=== PATIENT | female | born 1955 | race Caucasian/White ===

== ENCOUNTER 2019-04-07 06:56 | Observation (INO) ==
[2019-04-07] MEDS ORDERED: *HR* FentaNYL (PF) 100 MCG/2 ML VIAL IVP ONE (07:14)
[2019-04-07 07:39] LABS: INR 0.9; Prothrombin Time 10.3 Seconds (9.4-12.1)
[2019-04-07 07:41] LABS: Activated Partial Thrombo Time 31.4 Seconds (26.0-36.0); Basophils % 0.7 %; Eosinophils # 0.1 K/mcL (0.0-0.6); Hematocrit 40.4 % (35.3-44.9); Hemoglobin 12.9 g/dL (11.5-15.4); Immature Granulocytes % 0.2 % (0-4); Lymphocytes # 1.6 K/mcL (0.6-4.6); Lymphocytes % 34.4 %; Mean Corpuscular HGB Conc 31.9 g/dL (31.6-35.5); Mean Corpuscular Hemoglobin 29.5 pg (28.0-33.3); Mean Corpuscular Volume 92.2 fL (83.0-100.0); Mean Platelet Volume 9.2 fL (9.4-12.4); Monocytes # 0.5 K/mcL (0.0-1.3); Monocytes % 10.7 %; Neutrophils # 2.4 K/mcL (1.6-8.9); Platelet Count 197 K/mcL (140-400); Red Blood Count 4.38 M/mcL (3.82-4.97); Red Cell Distribution Width 12.9 % (11.5-14.5); White Blood Count 4.6 K/mcL (4.3-11.1)
[2019-04-07] MEDS ORDERED: Aspirin 81 MG TAB.CHEW PO STA (08:12)
[2019-04-07 08:41] LABS: BUN/Creatinine Ratio 14 (6-26); Blood Urea Nitrogen 11 mg/dL (8-23); Calcium 9.6 mg/dL (8.6-10.3); Carbon Dioxide 32 mEq/L (23-29); Chloride 101 mEq/L (98-107); Glucose 115 mg/dL (70-105); Osmolality,Calculated 292 (280-300); Potassium 2.9 mEq/L (3.5-5.1); Sodium 141 mEq/L (136-145); Troponin I < 0.03 ng/mL (< 0.04); eGFR For African Americans > 60 (> 60); eGFR For Non-African Americans > 60 (> 60)
[2019-04-07] MEDS ORDERED: Potassium Chloride Elixir 20 MEQ/15 ML UDC PO ONE (08:47)
[2019-04-07] MEDS ORDERED: Acetaminophen 325 MG TABLET PO PRN (10:00)
[2019-04-07] MEDS ORDERED: *HR* HYDROcodone/Acet 5/325 mg TABLET PO PRN (10:00)
[2019-04-07] MEDS ORDERED: Naloxone 0.4 MG/ML INJ IVP PRN (10:00)
[2019-04-07] MEDS ORDERED: Ondansetron 4 MG/2 ML VIAL IVP PRN (10:00)
[2019-04-07] MEDS ORDERED: Nitroglycerin 0.4 MG TAB.SUBL SL PRN (10:02)
[2019-04-07] MEDS ORDERED: SUMAtriptan succinate 25 MG TABLET PO PRN (10:02)
[2019-04-07 10:33] LABS: Magnesium 1.7 mg/dL (1.6-2.6)
[2019-04-07] MEDS: *HR* Heparin 5,000 UNIT/ML VIAL SQ SCH (18:05)
[2019-04-07] MEDS: Gabapentin 300 MG CAPSULE PO SCH (20:20)
[2019-04-08 05:48] LABS: Basophils % 0.7 %; Eosinophils # 0.1 K/mcL (0.0-0.6); Eosinophils % 2.2 %; Hematocrit 37.1 % (35.3-44.9); Hemoglobin 12.6 g/dL (11.5-15.4); Immature Granulocytes % 0.2 % (0-4); Lymphocytes # 1.9 K/mcL (0.6-4.6); Lymphocytes % 47.5 %; Mean Corpuscular Hemoglobin 30.4 pg (28.0-33.3); Mean Corpuscular Volume 89.6 fL (83.0-100.0); Mean Platelet Volume 9.5 fL (9.4-12.4); Monocytes # 0.4 K/mcL (0.0-1.3); Monocytes % 8.7 %; Neutrophils # 1.6 K/mcL (1.6-8.9); Platelet Count 175 K/mcL (140-400); Red Blood Count 4.14 M/mcL (3.82-4.97); Red Cell Distribution Width 13.1 % (11.5-14.5); Segmented Neutrophils % 40.7 %
[2019-04-08] MEDS: *HR* Heparin 5,000 UNIT/ML VIAL SQ SCH ×2 (05:50→17:49)
[2019-04-08 06:09] LABS: BUN/Creatinine Ratio 15 (6-26); Blood Urea Nitrogen 12 mg/dL (8-23); Calcium 9.1 mg/dL (8.6-10.3); Carbon Dioxide 28 mEq/L (23-29); Chloride 106 mEq/L (98-107); Glucose 108 mg/dL (70-105); Magnesium 1.9 mg/dL (1.6-2.6); Osmolality,Calculated 292 (280-300); Potassium 3.6 mEq/L (3.5-5.1); Sodium 141 mEq/L (136-145); eGFR For African Americans > 60 (> 60); eGFR For Non-African Americans > 60 (> 60)
[2019-04-08] MEDS: Gabapentin 300 MG CAPSULE PO SCH ×2 (12:20→20:21)
[2019-04-08] MEDS: Aspirin Enteric Coated 81 MG Tablet PO SCH (12:20)
[2019-04-08] MEDS: Fluticasone Propionate Nasal 50 MCG/SPRAY BOTTLE NS SCH (12:21)
[2019-04-08] MEDS ORDERED: Methyl Salicylate/Menthol 28 GM TUBE TP PRN (22:50)
[2019-04-08] MEDS ORDERED: Methyl Salicylate/Menthol 57 APPL/57 GM TUBE TP PRN (23:17)
[2019-04-09] MEDS: *HR* Heparin 5,000 UNIT/ML VIAL SQ SCH ×2 (05:38→20:35)
[2019-04-09] MEDS: Gabapentin 300 MG CAPSULE PO SCH ×2 (10:42→20:35)
[2019-04-09] MEDS: Fluticasone Propionate Nasal 50 MCG/SPRAY BOTTLE NS SCH (10:45)
[2019-04-09] MEDS: Aspirin Enteric Coated 81 MG Tablet PO SCH (10:45)
[2019-04-09] MEDS ORDERED: Nitroglycerin 1,000 MCG/10 ML VIAL IV ONE (15:47)
[2019-04-09] MEDS ORDERED: *HR* Heparin 10,000 UNIT/10 ML VIAL ONE (15:47)
[2019-04-09] MEDS ORDERED: ISOVUE-370 200 ML INFUS..BTL ONE (15:47)
[2019-04-09] MEDS ORDERED: 0.9 % Sodium Chloride 2,000 ML ONE (15:47)
[2019-04-09] MEDS ORDERED: Heparin 1,000 UNITS/500 mL 500 ML ONE (15:47)
[2019-04-09] MEDS ORDERED: *HR* Midazolam HCl 2 MG/2 ML VIAL ONE (16:41)
[2019-04-09] MEDS ORDERED: *HR* FentaNYL (PF) 100 MCG/2 ML VIAL ONE (16:42)
[2019-04-10 03:17] VITALS: BP 134/82
== END 2019-04-09 22:20 | disposition home or self-care (01) ==
LOC: EMEROOARM 06:56 → 3BNU 06:56 → SUATTDRO 09:20 → 3BNU 10:00
PROVIDERS: ADMIT Internal Medicine; ATTEND Student in an Organized Health Care Education/Training Program

== ENCOUNTER 2021-01-26 21:08 | Inpatient (IN) ==
[2021-01-26 21:56] LABS: Hematocrit 32.4 % (35.3-44.9); Hemoglobin 10.1 g/dL (11.5-15.4); Immature Granulocytes % 1.7 % (0-4); Lymphocytes # 0.4 K/mcL (0.6-4.6); Lymphocytes % 15.2 %; Mean Corpuscular HGB Conc 31.2 g/dL (31.6-35.5); Mean Corpuscular Hemoglobin 24.7 pg (28.0-33.3); Mean Corpuscular Volume 79.2 fL (83.0-100.0); Mean Platelet Volume 10.7 fL (9.4-12.4); Monocytes # 0.3 K/mcL (0.0-1.3); Monocytes % 12.2 %; Neutrophils # 1.7 K/mcL (1.6-8.9); Nucleated Red Blood Cells 0.8 /100 WBC (0); Platelet Count 154 K/mcL (140-400); Red Blood Count 4.09 M/mcL (3.82-4.97); Red Cell Distribution Width 14.1 % (11.5-14.5); Segmented Neutrophils % 70.9 %; White Blood Count 2.4 K/mcL (4.3-11.1)
[2021-01-26 22:03] LABS: VBG HCO3 29 mEq/L (21-27); VBG PCO2 45 mmHg (41-51); VBG PH 7.42 pH Units (7.32-7.42); VBG PO2 112 mmHg (25-50)
[2021-01-26 22:04] LABS: INR 1.3; Prothrombin Time 15.1 Seconds (9.4-12.1)
[2021-01-26 22:07] LABS: Activated Partial Thrombo Time 28.9 Seconds (26.0-36.0)
[2021-01-26 22:50] LABS: Ferritin 51 ng/mL (10-120)
[2021-01-26] MEDS ORDERED: Isovue-370 500 ML BOTTLE IVP ONE (22:57)
[2021-01-26 23:02] LABS: Alanine Aminotransferase 6 Units/L (7-52); Albumin 3.7 g/dL (3.5-5.7); Albumin/Globulin Ratio 1.2 (1.1-2.2); Alkaline Phosphatase 67 Units/L (34-104); Aspartate Amino Transferase 17 Units/L (13-39); BUN/Creatinine Ratio 17 (6-26); Bilirubin,Direct 0.1 mg/dL (0.0-0.2); Bilirubin,Indirect 0.2 mg/dL (0.0-1.0); Bilirubin,Total 0.3 mg/dL (0.3-1.0); Blood Urea Nitrogen 30 mg/dL (8-23); C-Reactive Protein 75 mg/L (Less than 10); Calcium 8.8 mg/dL (8.6-10.3); Carbon Dioxide 26 mEq/L (23-29); Chloride 94 mEq/L (98-107); Glucose 126 mg/dL (70-105); Lactate Dehydrogenase 285 Units/L (140-271); Osmolality,Calculated 286 (280-300); Sodium 134 mEq/L (136-145); Total Protein 6.7 g/dL (6.4-8.9); eGFR For African Americans 34 (> 60); eGFR For Non-African Americans 28 (> 60)
[2021-01-26 23:20] LABS: Troponin I < 0.03 ng/mL (< 0.04)
[2021-01-26] MEDS ORDERED: 0.9 % Sodium Chloride 1,000 ML IV ONE (23:51)
[2021-01-27] MEDS ORDERED: Acetaminophen 325 MG TABLET PO PRN (01:25)
[2021-01-27] MEDS ORDERED: Ondansetron 4 MG/2 ML VIAL IVP PRN (01:25)
[2021-01-27] MEDS ORDERED: Naloxone 0.4 MG/ML INJ IVP PRN (01:25)
[2021-01-27] MEDS ORDERED: Melatonin 3 MG TABLET PO PRN (01:25)
[2021-01-27] MEDS ORDERED: Ringers Solution, Lactated 1,000 ML IVC SCH (01:30)
[2021-01-27 02:32] LABS: Hemoglobin 9.5 g/dL (11.5-15.4); Immature Granulocytes % 1.4 % (0-4); Lymphocytes # 0.4 K/mcL (0.6-4.6); Lymphocytes % 18.4 %; Mean Corpuscular HGB Conc 30.6 g/dL (31.6-35.5); Mean Corpuscular Hemoglobin 24.5 pg (28.0-33.3); Mean Corpuscular Volume 80.1 fL (83.0-100.0); Monocytes # 0.3 K/mcL (0.0-1.3); Monocytes % 11.8 %; Neutrophils # 1.5 K/mcL (1.6-8.9); Nucleated Red Blood Cells 1.4 /100 WBC (0); Platelet Count 134 K/mcL (140-400); Red Blood Count 3.87 M/mcL (3.82-4.97); Red Cell Distribution Width 14.4 % (11.5-14.5); Segmented Neutrophils % 68.4 %; White Blood Count 2.1 K/mcL (4.3-11.1)
[2021-01-27 02:45] LABS: INR 1.3; Prothrombin Time 14.9 Seconds (9.4-12.1)
[2021-01-27 02:50] LABS: Albumin 3.5 g/dL (3.5-5.7); Albumin/Globulin Ratio 1.3 (1.1-2.2); Bilirubin,Total 0.3 mg/dL (0.3-1.0); Calcium 8.6 mg/dL (8.6-10.3); Globulin 2.7 g/dL (2.4-3.5); Magnesium 1.4 mg/dL (1.6-2.6); Potassium 2.8 mEq/L (3.5-5.1); Total Protein 6.2 g/dL (6.4-8.9)
[2021-01-27] MEDS: *HR* Heparin 5,000 UNIT/ML VIAL SQ SCH ×3 (04:47→20:46)
[2021-01-27] MEDS ORDERED: Remdesivir 200 MG in 0.9 % Sodium Chloride 100 ML IVPB ONE (05:30)
[2021-01-27] MEDS: Loratadine 10 MG TABLET PO SCH (07:59)
[2021-01-27] MEDS: PARoxetine 20 MG TABLET PO SCH (07:59)
[2021-01-27] MEDS: Gabapentin 300 MG CAPSULE PO SCH ×2 (08:00→20:46)
[2021-01-27] MEDS: Aspirin Enteric Coated 81 MG Tablet PO SCH (08:00)
[2021-01-27] MEDS: Budesonide/Formoterol 160/4.5 1 PUFF INH IH SCH (20:38)
[2021-01-28 01:44] LABS: Hematocrit 31.7 % (35.3-44.9); Hemoglobin 9.9 g/dL (11.5-15.4); Mean Corpuscular HGB Conc 31.2 g/dL (31.6-35.5); Mean Corpuscular Hemoglobin 25.1 pg (28.0-33.3); Mean Corpuscular Volume 80.3 fL (83.0-100.0); Mean Platelet Volume 10.5 fL (9.4-12.4); Platelet Count 170 K/mcL (140-400); Red Blood Count 3.95 M/mcL (3.82-4.97); Red Cell Distribution Width 14.2 % (11.5-14.5); White Blood Count 1.8 K/mcL (4.3-11.1)
[2021-01-28] MEDS: *HR* HYDROcodone/Acet 5/325 mg TABLET PO PRN ×2 (02:03→21:06)
[2021-01-28 02:09] LABS: Albumin 3.5 g/dL (3.5-5.7); Albumin/Globulin Ratio 1.3 (1.1-2.2); Bilirubin,Direct 0.1 mg/dL (0.0-0.2); Bilirubin,Indirect 0.2 mg/dL (0.0-1.0); Bilirubin,Total 0.3 mg/dL (0.3-1.0); Globulin 2.8 g/dL (2.4-3.5); Total Protein 6.3 g/dL (6.4-8.9)
[2021-01-28 02:26] LABS: BUN/Creatinine Ratio 28 (6-26); Blood Urea Nitrogen 27 mg/dL (8-23); C-Reactive Protein 67 mg/L (Less than 10); Calcium 8.9 mg/dL (8.6-10.3); Carbon Dioxide 25 mEq/L (23-29); Chloride 101 mEq/L (98-107); Ferritin 50 ng/mL (10-120); Glucose 128 mg/dL (70-105); Lactate Dehydrogenase 303 Units/L (140-271); Osmolality,Calculated 291 (280-300); Potassium 4.3 mEq/L (3.5-5.1); Sodium 137 mEq/L (136-145); eGFR For African Americans > 60 (> 60); eGFR For Non-African Americans 59 (> 60)
[2021-01-28] MEDS: *HR* Heparin 5,000 UNIT/ML VIAL SQ SCH ×3 (06:08→21:00)
[2021-01-28] MEDS: Remdesivir 100 MG in 0.9 % Sodium Chloride 100 ML IVPB SCH (06:09)
[2021-01-28] MEDS: Aspirin Enteric Coated 81 MG Tablet PO SCH (08:08)
[2021-01-28] MEDS: Loratadine 10 MG TABLET PO SCH (08:09)
[2021-01-28] MEDS: PARoxetine 20 MG TABLET PO SCH (08:09)
[2021-01-28] MEDS: Gabapentin 300 MG CAPSULE PO SCH ×2 (08:09→21:00)
[2021-01-28] MEDS: Budesonide/Formoterol 160/4.5 1 PUFF INH IH SCH ×2 (08:10→22:58)
[2021-01-28 09:00] LABS: Bacteria,Urine Few per hpf (None-Few); Bilirubin,Urine Negative (Negative); Blood,Urine Negative (Negative); Clarity,Urine Clear (Clear); Color,Urine Yellow (Yellow); Glucose,Urine (UA) Normal (Normal); Granular Casts,Urine Few per lpf (None Seen); Hyaline Casts,Urine Many per lpf (None Seen); Ketones,Urine Negative (Negative); Leukocyte Esterase,Urine Small (Negative); Mucus,Urine Few per lpf (None-Few); Nitrite,Urine Positive (Negative); Protein,Urine Trace mg/dL (Neg-Trace); RBC,Urine 0-3 per hpf (0-3); Renal Epithelial Cells,Urine Few per hpf (None-Few); Specific Gravity,Urine 1.026 (1.010-1.025); Squamous Epithelial Cell,Urine Few per hpf (None-Few); Transitional Epi Cells,Urine Few per hpf (None-Few); Urobilinogen,Urine Normal (Normal); WBC,Urine 15-30 per hpf (0-3)
[2021-01-28 12:22] LABS: Protein/Creatinine Ratio,Urine 0.19 mg/mg (0.00-0.20); Sodium, Urine 22.4 mEq/L
[2021-01-29] MEDS: *HR* Heparin 5,000 UNIT/ML VIAL SQ SCH ×3 (06:23→21:42)
[2021-01-29] MEDS: Remdesivir 100 MG in 0.9 % Sodium Chloride 100 ML IVPB SCH (06:23)
[2021-01-29 07:48] LABS: Hematocrit 32.7 % (35.3-44.9); Hemoglobin 9.8 g/dL (11.5-15.4); Mean Corpuscular Hemoglobin 24.6 pg (28.0-33.3); Mean Platelet Volume 10.5 fL (9.4-12.4); Platelet Count 202 K/mcL (140-400); Red Blood Count 3.99 M/mcL (3.82-4.97); Red Cell Distribution Width 14.3 % (11.5-14.5)
[2021-01-29 07:59] LABS: White Blood Count 3.9 K/mcL (4.3-11.1)
[2021-01-29 08:21] LABS: BUN/Creatinine Ratio 36 (6-26); Blood Urea Nitrogen 31 mg/dL (8-23); Calcium 9.1 mg/dL (8.6-10.3); Carbon Dioxide 27 mEq/L (23-29); Chloride 104 mEq/L (98-107); Glucose 109 mg/dL (70-105); Osmolality,Calculated 299 (280-300); Potassium 3.9 mEq/L (3.5-5.1); Sodium 141 mEq/L (136-145); eGFR For African Americans > 60 (> 60); eGFR For Non-African Americans > 60 (> 60)
[2021-01-29] MEDS: Budesonide/Formoterol 160/4.5 1 PUFF INH IH SCH ×2 (08:24→20:16)
[2021-01-29 08:30] LABS: Albumin 3.3 g/dL (3.5-5.7); Albumin/Globulin Ratio 1.1 (1.1-2.2); Bilirubin,Direct 0.1 mg/dL (0.0-0.2); Bilirubin,Indirect 0.2 mg/dL (0.0-1.0); Bilirubin,Total 0.3 mg/dL (0.3-1.0); Globulin 2.9 g/dL (2.4-3.5); Total Protein 6.2 g/dL (6.4-8.9)
[2021-01-29] MEDS: Gabapentin 300 MG CAPSULE PO SCH ×2 (09:50→21:39)
[2021-01-29] MEDS: PARoxetine 20 MG TABLET PO SCH (09:50)
[2021-01-29] MEDS: Aspirin Enteric Coated 81 MG Tablet PO SCH (09:51)
[2021-01-29] MEDS: Loratadine 10 MG TABLET PO SCH (09:51)
[2021-01-29] MEDS: *HR* HYDROcodone/Acet 5/325 mg TABLET PO PRN (21:39)
[2021-01-30 01:00] LABS: Hemoglobin 9.7 g/dL (11.5-15.4); Mean Corpuscular HGB Conc 30.3 g/dL (31.6-35.5); Mean Platelet Volume 10.4 fL (9.4-12.4); Red Cell Distribution Width 14.3 % (11.5-14.5)
[2021-01-30 01:03] LABS: Mean Corpuscular Hemoglobin 24.6 pg (28.0-33.3); Mean Corpuscular Volume 81.2 fL (83.0-100.0); Platelet Count 214 K/mcL (140-400); Red Blood Count 3.94 M/mcL (3.82-4.97); White Blood Count 3.6 K/mcL (4.3-11.1)
[2021-01-30 01:11] LABS: Albumin 3.3 g/dL (3.5-5.7); Albumin/Globulin Ratio 1.1 (1.1-2.2); Bilirubin,Direct 0.1 mg/dL (0.0-0.2); Bilirubin,Indirect 0.2 mg/dL (0.0-1.0); Bilirubin,Total 0.3 mg/dL (0.3-1.0); Globulin 2.9 g/dL (2.4-3.5); Total Protein 6.2 g/dL (6.4-8.9)
[2021-01-30 01:13] LABS: BUN/Creatinine Ratio 34 (6-26); Blood Urea Nitrogen 29 mg/dL (8-23); Calcium 9.1 mg/dL (8.6-10.3); Carbon Dioxide 27 mEq/L (23-29); Chloride 104 mEq/L (98-107); Glucose 117 mg/dL (70-105); Osmolality,Calculated 293 (280-300); Potassium 4.1 mEq/L (3.5-5.1); Sodium 138 mEq/L (136-145); eGFR For African Americans > 60 (> 60); eGFR For Non-African Americans > 60 (> 60)
[2021-01-30] MEDS: Remdesivir 100 MG in 0.9 % Sodium Chloride 100 ML IVPB SCH (05:29)
[2021-01-30] MEDS: *HR* Heparin 5,000 UNIT/ML VIAL SQ SCH ×2 (05:32→14:16)
[2021-01-30] MEDS: Budesonide/Formoterol 160/4.5 1 PUFF INH IH SCH (07:36)
[2021-01-30] MEDS: Aspirin Enteric Coated 81 MG Tablet PO SCH (09:43)
[2021-01-30] MEDS: Loratadine 10 MG TABLET PO SCH (09:44)
[2021-01-30] MEDS: PARoxetine 20 MG TABLET PO SCH (09:44)
[2021-01-30] MEDS: Gabapentin 300 MG CAPSULE PO SCH (09:44)
[2021-01-30 14:35] VITALS: O2SAT 92
[2021-01-30 14:45] VITALS: BP 116/75; PULSE 79; TEMP 98
== END 2021-01-30 18:00 | disposition home or self-care (01) | DRG 177 ==
LOC: EMEROOARM 21:08 → 3BNU 21:08 → SUATTDRO 01-27 01:12 → 3BNU 01-27 01:52
PROVIDERS: ADMIT Family Medicine; ATTEND Internal Medicine